=== PATIENT | female | born 1970 | race African-American/Black ===

== ENCOUNTER 2019-05-24 18:18 | Emergency (ER) | payer OTHER ==
[~2019-05-24] VITALS: Ht 157.5 cm; Wt 79.0 kg
[2019-05-24] MEDS ORDERED: KETOROLAC 60MG/2ML VIAL IM ONE (23:15)
[2019-05-25 00:12] VITALS: BP 127/84
== END 2019-05-25 00:30 | disposition home or self-care (01) ==
LOC: ER 18:18
DX: J06.9 Acute upper respiratory infection, unspecified (principal); I10 Essential (primary) hypertension; J45.909 Unspecified asthma, uncomplicated; Z87.891 Personal history of nicotine dependence; F12.10 Cannabis abuse, uncomplicated; Z88.0 Allergy status to penicillin
CPT/HCPCS: 96372; 99283; J1885